=== PATIENT | female | born 1970 | race Caucasian/White ===

== ENCOUNTER 2017-03-24 12:01 | Emergency (ER) | payer SELFPAY ==
--- NOTE | ~2017-03-24 | ER ---
PATIENT'S NAME: YAMILKA LEONE [facility] AGE: 46 Y [address] ROOM: [place] [address] LOCATION: ED ADMIT DATE: 03/24/2017 ER/Outpatient Report DISCHARGE DATE: 03/24/2017 FAMILY PHYSICIAN: PHYSICIAN, NO ATTENDING PHYSICIAN: Michael Salazar CHIEF COMPLAINT: "My lungs hurt." HISTORY OF PRESENT ILLNESS: The patient states that she has had many issues and wants them evaluated today, chief of ones which is the fact that her lungs hurt. Over the last several months, she has had pain in both sides in her back, it has been worse after vomiting on Tuesday and Tuesday. She has also had diarrhea. She also is concerned about painful intercourse, which is causing relational issues, but denies any other acute issues. She denies fevers or chills. No nausea or vomiting today. She has had nausea and vomiting as well as diarrhea this week. She denies any unusual vaginal discharge. She is concerned about possible menopause as well. She has tried ibuprofen 4 tablets 4 times a day to try to help with this, but does not seem to have made any improvement. She does not have a primary care provider. PAST MEDICAL HISTORY: Documented on the record and reviewed by me. SOCIAL HISTORY: Documented on the record and reviewed by me. MEDICATIONS: Documented on the record and reviewed by me. ALLERGIES: DOCUMENTED ON THE RECORD AND REVIEWED BY ME. REVIEW OF SYSTEMS: All systems reviewed and negative except as noted in the HPI. PHYSICAL EXAMINATION: VITAL SIGNS: Blood pressure 136/80, pulse is 87, respiratory rate 18, temperature 97.7, and SpO2 is 95% on room air. Pain 0/10. GENERAL: Female, upright on exam table, appearing older than stated age. No obvious pain or distress. NEUROLOGIC: Awake and alert. GCS 15. No focal deficits. No asymmetry. HEENT: Normocephalic and atraumatic. Eyes are PERRL. Oropharynx is clear. NECK: Supple. Trachea is midline. PATIENT'S NAME: YAMILKA LEONE [facility] AGE: 46 Y [address] ROOM: [place] [address] LOCATION: [facility] ADMIT DATE: 03/24/2017 ER/Outpatient Report DISCHARGE DATE: 03/24/2017 FAMILY PHYSICIAN: PHYSICIAN, NO ATTENDING PHYSICIAN: Michael Salazar CHEST: Heart has regular rate and rhythm with no murmurs. Lungs are clear to auscultation bilaterally with no rhonchi, wheezes, or rales. ABDOMEN: Soft, nontender, and nondistended. No rebound or guarding. BACK: Back is normal to inspection and palpation. No CVA tenderness. The chest wall nontender to palpation. EXTREMITIES: Warm and well perfused. No obvious edema or deformities. SKIN: Clean, dry, and intact. LABORATORY DATA AND X-RAYS: Chest x-ray unremarkable per my review. CBC without appreciable abnormality other than hemoglobin of 16.4. Urinalysis not indicative of infection. Serum TSH and T4 in appropriate limits. CMP with an elevated glucose of 141, otherwise unremarkable. Amylase and lipase within appropriate limits. IMPRESSION: Nonspecific upper abdominal and thoracic pain. EMERGENCY DEPARTMENT COURSE: The patient was seen and evaluated. Timeframe does not identify cardiac etiology. The patient was ruled out for hepatobiliary pathology using laboratory evaluation in this setting. Because she stated that "my lungs hurt," a chest x-ray was obtained and unremarkable for pneumothorax or pneumonia, clinically is not consistent. Chronic obstructive pulmonary disease is possible with the patient being a smoker, however, there is no clear evidence that she is having hypoxia and the timeframes do not fit. She needs to establish care with a primary care provider. Follow up as needed. Light duty at work for one week. MD JENNIFER DELCID/tavo /[id number] d: 03/24/172020 t: 03/28/17 0710, OUTPATIENT REPORT
[2017-03-24 12:37] LABS: BILIRUBIN URINE NEGATIVE (NEGATIVE); BLOOD URINE NEGATIVE /UL (NEGATIVE); COLOR URINE YELLOW (YELLOW); GLUCOSE URINE 100 mg/dL (NEGATIVE); KETONE URINE NEGATIVE (NEGATIVE); LEUKOCYTES URINE NEGATIVE /UL (NEGATIVE); NITRITE URINE NEGATIVE (NEGATIVE); PROTEIN URINE NEGATIVE (NEGATIVE); SPEC GRAVITY URINE 1.025 (1.003-1.035); TURBIDITY URINE CLEAR (CLEAR); UROBILINOGEN URINE NORMAL (NORMAL)
[2017-03-24 12:44] LABS: BASOPHIL # 0.1 K/uL (0.0-0.2); BASOPHIL % 0.7 %; EOSINOPHIL # 0.4 K/uL (0.0-0.5); HEMATOCRIT 47.2 % (33.0-46.0); HEMOGLOBIN 16.4 g/dL (10.0-15.0); IMMATURE GRANULOCYTE # 0.1 K/uL (0.0-0.3); IMMATURE GRANULOCYTE % 0.7 %; LYMPHOCYTE % 22.5 %; MCH 31.1 pg (27.0-34.0); MCHC 34.7 gm/dL (32.0-36.5); MCV 89.6 fl (83.0-98.0); MONOCYTE # 0.8 K/uL (0.0-1.0); MONOCYTE % 8.8 %; MPV 9.4 fl (9.4-12.4); NEUTROPHIL # (ANC) 5.7 K/uL (1.8-7.8); NEUTROPHIL % 63.3 %; NRBC % 0 /100WBC (0-0.00); PLATELET COUNT 193 K/uL (150-450); RBC 5.27 M/uL (3.50-5.50); RDW-CV 12.5 % (11.9-14.6); WBC 8.9 K/uL (4.0-11.0)
[2017-03-24 13:03] LABS: ALBUMIN 3.5 gm/dL (3.5-5.0); ANION GAP 8.2 (10.0-19.0); CALCIUM 8.5 mg/dL (8.5-10.5); POTASSIUM 4.2 mMol/L (3.7-5.1); TOTAL BILIRUBIN 0.4 mg/dL (0.0-1.5); TOTAL PROTEIN 7.3 g/dL (6.0-8.4)
== END 2017-03-24 13:21 | disposition disaster alternative care site (69) ==
LOC: GMED 12:01
PROVIDERS: Emergency Medicine
DX: M54.6 Pain in thoracic spine (principal); R10.10 Upper abdominal pain, unspecified; Z79.899 Other long term (current) drug therapy; Z88.8 Allergy status to other drugs, medicaments and biological substances